=== PATIENT | male | born 1935 | race African-American/Black ===

== ENCOUNTER 2021-05-03 15:13 | Inpatient (IN) | payer MEDICARE, BC ==
[~2021-05-03] VITALS: Ht 188 cm; Wt 89.8 kg
[~2021-05-03 15:13] MED LIST: BRIN8DRO EACHEYE; TRAM50TA3 MT; TRAV2.5D9 EACHEYE
[2021-05-03] MEDS ORDERED: SODIUM CHLORIDE 0.9% 1,000 ML IV ONE (16:30)
[2021-05-03 17:24] LABS: HEMOGLOBIN. 9.3 g/dL (14.0-18.0); MEAN CORPUSCULAR HEMOGLOBIN 28.8 pg (28.0-32.0); MEAN CORPUSCULAR VOLUME 86.8 fL (80.0-94.0); MEAN PLATELET VOLUME 8.5 fl (7.4-10.4); PLATELET 149 x1000/uL (130-400); RED BLOOD CELL COUNT 3.23 mill/uL (4.7-6.1); RED CELL DISTRIBUTION WIDTH 14.9 % (11.6-14.6)
[2021-05-03 17:31] LABS: CHLORIDE 108 mEq/L (98-107)
[2021-05-03] MEDS ORDERED: ONDANSETRON HCL 4MG/2ML INJ IV PRN (18:45)
[2021-05-03] MEDS ORDERED: ACETAMINOPHEN 650MG/20.3ML UDC GT PRN (18:45)
[2021-05-03] MEDS ORDERED: DOCUSATE SODIUM 100MG CAPSULE PO PRN (18:45)
[2021-05-03] MEDS ORDERED: ENOXAPARIN 60MG/0.6ML SYR SUBCUT ONE (19:15)
[2021-05-03] MEDS ORDERED: ASPIRIN 81MG TABLET PO ONE (19:15)
[2021-05-03 19:47] LABS: PLATELET ESTIMATE NORMAL
[2021-05-03 22:00] VITALS: BP 146/81
[2021-05-03 23:00] VITALS: BP 146/81
[2021-05-04] VITALS (7 sets, daily range): BP systolic 92–131; BP diastolic 41–79
[2021-05-04 00:14] LABS: CREATINE KINASE MB FRACTION 3.4 ng/mL (0.5-3.6)
[2021-05-04] MEDS: HYDROCODONE/ACETAMINOPHEN 5/325MG TABLET PO PRN ×2 (08:21→12:27)
[2021-05-04 09:47] LABS: CLARITY URINE TURBID (CLEAR); COLOR URINE DARK YELLOW (YELLOW); KETONES URINE TRACE (NEGATIVE); LEUKOCYTE ESTERASE URINE NEGATIVE (NEGATIVE); NITRITE URINE NEGATIVE (NEGATIVE); OCCULT BLOOD URINE NEGATIVE (NEGATIVE); PROTEIN URINE TRACE (NEGATIVE); SPECIFIC GRAVITY URINE 1.027 (1.005-1.030); UROBILINOGEN URINE 0.2 E.U./dL (0.2-1.0)
[2021-05-04 10:05] LABS: BASOPHILS % 0.1 % (0.0-2.0); EOSINOPHILS % 0.2 % (0.0-5.0); HEMATOCRIT. 21.3 % (42.0-52.0); HEMOGLOBIN. 7.4 g/dL (14.0-18.0); LYMPHOCYTES % 11.7 % (20.0-50.0); MEAN CORPUSCULAR HEMOGLOBIN 30.5 pg (28.0-32.0); MEAN CORPUSCULAR VOLUME 87.4 fL (80.0-94.0); MEAN PLATELET VOLUME 8.9 fl (7.4-10.4); MONOCYTES % 5.7 % (2.0-8.0); NEUTROPHILS % 82.3 % (40.0-76.0); PLATELET 115 x1000/uL (130-400); RED BLOOD CELL COUNT 2.44 mill/uL (4.7-6.1); RED CELL DISTRIBUTION WIDTH 14.7 % (11.6-14.6)
[2021-05-04 10:22] LABS: CHLORIDE 112 mEq/L (98-107)
[2021-05-04 10:26] LABS: *AMPHETAMINES SCREEN URINE NEGATIVE (NEGATIVE); *BARBITURATES SCREEN URINE NEGATIVE (NEGATIVE); *BENZODIAZEPINES SCREEN URINE NEGATIVE (NEGATIVE); *COCAINE SCREEN URINE NEGATIVE (NEGATIVE); METHADONE URINE SCREEN NEGATIVE (NEGATIVE)
[2021-05-04 10:27] LABS: CANNABINOID URINE SCREEN NEGATIVE (NEGATIVE); OPIATES URINE SCREEN NEGATIVE (NEGATIVE); PHENCYCLIDINE URINE SCREEN NEGATIVE (NEGATIVE)
[2021-05-04 10:34] LABS: CREATINE KINASE MB FRACTION 3.8 ng/mL (0.5-3.6)
[2021-05-04 10:35] LABS: CREATINE KINASE 383 IU/L (39-308)
[2021-05-04] MEDS ORDERED: DEXTROSE 50% WATER 50ML SYRINGE IV PRN (16:45)
[2021-05-04] MEDS: BLOOD SUGAR DIAGNOSTIC STRIP TEST SCH ×2 (17:00→21:00)
[2021-05-04] MEDS: INSULIN LISPRO 100 UNITS/ML SUBCUT SCH ×2 (17:10→21:00)
[2021-05-05] VITALS (20 sets, daily range): BP systolic 100–203; BP diastolic 51–103
[2021-05-05] MEDS: BLOOD SUGAR DIAGNOSTIC STRIP TEST SCH ×4 (06:02→20:36)
[2021-05-05] MEDS: INSULIN LISPRO 100 UNITS/ML SUBCUT SCH ×4 (06:16→20:39)
[2021-05-05 11:40] LABS: HEMATOCRIT 23.1 % (42.0-52.0)
[2021-05-05 12:51] LABS: BASOPHILS % 0.2 % (0.0-2.0); EOSINOPHILS % 1.1 % (0.0-5.0); HEMOGLOBIN. 7.8 g/dL (14.0-18.0); LYMPHOCYTES % 13.2 % (20.0-50.0); MEAN CORPUSCULAR HEMOGLOBIN 29.7 pg (28.0-32.0); MEAN CORPUSCULAR VOLUME 87.7 fL (80.0-94.0); MEAN PLATELET VOLUME 9.3 fl (7.4-10.4); MONOCYTES % 13.4 % (2.0-8.0); NEUTROPHILS % 72.1 % (40.0-76.0); PLATELET 88 x1000/uL (130-400); RED BLOOD CELL COUNT 2.63 mill/uL (4.7-6.1); RED CELL DISTRIBUTION WIDTH 14.8 % (11.6-14.6)
[2021-05-05 13:01] LABS: CHLORIDE 113 mEq/L (98-107)
[2021-05-05 13:09] LABS: TOTAL IRON BINDING CAPACITY 383 ug/dL (250-450)
[2021-05-05 13:43] LABS: FOLIC ACID (FOLATE) SERUM >20 ng/mL ng/mL (>5.38)
[2021-05-05 13:54] LABS: VITAMIN B12 SERUM 597 pg/mL (211-911)
[2021-05-05 16:54] LABS: INR 1.1; PROTHROMBIN TIME 11.6 sec (9.6-11.0)
[2021-05-05] MEDS: PANTOPRAZOLE SODIUM 40 MG/VIAL IV SCH (17:24)
[2021-05-05] MEDS: HYDROCODONE/ACETAMINOPHEN 5/325MG TABLET PO PRN (18:23)
[2021-05-05] MEDS: AMLODIPINE 10MG TABLET PO SCH (18:46)
[2021-05-05] MEDS ORDERED: CLONIDINE 0.1MG TABLET PO PRN (21:15)
[2021-05-05 23:39] LABS: HEMATOCRIT 26.7 % (42.0-52.0); HEMOGLOBIN 9.1 g/dL (14.0-18.0)
[2021-05-06] VITALS (7 sets, daily range): BP systolic 118–172; BP diastolic 41–86
[2021-05-06 01:25] LABS: HEPATITIS B SURFACE ANTIGEN NEGATIVE
[2021-05-06] MEDS: INSULIN LISPRO 100 UNITS/ML SUBCUT SCH ×4 (06:31→21:00)
[2021-05-06] MEDS: BLOOD SUGAR DIAGNOSTIC STRIP TEST SCH ×4 (06:31→21:00)
[2021-05-06 07:42] LABS: BASOPHILS % 0.2 % (0.0-2.0); EOSINOPHILS % 0.6 % (0.0-5.0); HEMATOCRIT. 27.7 % (42.0-52.0); HEMOGLOBIN. 9.3 g/dL (14.0-18.0); LYMPHOCYTES % 7.3 % (20.0-50.0); MEAN CORPUSCULAR HEMOGLOBIN 29.4 pg (28.0-32.0); MEAN CORPUSCULAR VOLUME 87.2 fL (80.0-94.0); MONOCYTES % 11.5 % (2.0-8.0); NEUTROPHILS % 80.4 % (40.0-76.0); PLATELET 95 x1000/uL (130-400); RED BLOOD CELL COUNT 3.18 mill/uL (4.7-6.1); RED CELL DISTRIBUTION WIDTH 14.7 % (11.6-14.6)
[2021-05-06 07:48] LABS: INR 1.1; PROTHROMBIN TIME 11.4 sec (9.6-11.0)
[2021-05-06 08:10] LABS: CHLORIDE 111 mEq/L (98-107)
[2021-05-06] MEDS: AMLODIPINE 10MG TABLET PO SCH (08:54)
[2021-05-06] MEDS: PANTOPRAZOLE SODIUM 40 MG/VIAL IV SCH ×2 (08:54→17:13)
[2021-05-06] MEDS ORDERED: MIDAZOLAM HCL 5 MG/5 ML VIAL ONE (14:37)
[2021-05-06] MEDS ORDERED: FENTANYL CITRATE/PF 50MCG/ML 2ML VIAL ONE (14:37)
[2021-05-07] VITALS (7 sets, daily range): BP systolic 104–171; BP diastolic 63–85
[2021-05-07] MEDS: INSULIN LISPRO 100 UNITS/ML SUBCUT SCH ×4 (06:19→21:00)
[2021-05-07] MEDS: BLOOD SUGAR DIAGNOSTIC STRIP TEST SCH ×4 (06:19→21:00)
[2021-05-07] MEDS: PANTOPRAZOLE SODIUM 40 MG/VIAL IV SCH ×2 (09:07→19:42)
[2021-05-07] MEDS: AMLODIPINE 10MG TABLET PO SCH (09:07)
[2021-05-07] MEDS ORDERED: AMLO10TA80 PO (14:39)
[2021-05-07] MEDS ORDERED: PROT40 MT (14:39)
[2021-05-07 18:34] LABS: BASOPHILS % 0.3 % (0.0-2.0); EOSINOPHILS % 1.9 % (0.0-5.0); HEMATOCRIT. 27.2 % (42.0-52.0); HEMOGLOBIN. 9.2 g/dL (14.0-18.0); MEAN CORPUSCULAR HEMOGLOBIN 30.1 pg (28.0-32.0); MEAN CORPUSCULAR VOLUME 88.8 fL (80.0-94.0); MEAN PLATELET VOLUME 9.3 fl (7.4-10.4); NEUTROPHILS % 70.8 % (40.0-76.0); PLATELET 120 x1000/uL (130-400); RED BLOOD CELL COUNT 3.06 mill/uL (4.7-6.1); RED CELL DISTRIBUTION WIDTH 14.9 % (11.6-14.6)
[2021-05-07] MEDS ORDERED: NALOXONE HCL 0.4MG/ML VIAL IV PRN (22:15)
[2021-05-08] VITALS: BP 156/77
[2021-05-08 04:00] VITALS: BP 154/79
[2021-05-08] MEDS: BLOOD SUGAR DIAGNOSTIC STRIP TEST SCH ×4 (06:16→21:00)
[2021-05-08] MEDS: INSULIN LISPRO 100 UNITS/ML SUBCUT SCH ×4 (06:17→21:35)
[2021-05-08 07:24] LABS: CHLORIDE 111 mEq/L (98-107)
[2021-05-08 07:37] LABS: BASOPHILS % 0.3 % (0.0-2.0); EOSINOPHILS % 2.4 % (0.0-5.0); HEMATOCRIT. 25.1 % (42.0-52.0); HEMOGLOBIN. 8.6 g/dL (14.0-18.0); LYMPHOCYTES % 13.1 % (20.0-50.0); MEAN CORPUSCULAR HEMOGLOBIN 30.1 pg (28.0-32.0); MEAN CORPUSCULAR VOLUME 87.1 fL (80.0-94.0); MEAN PLATELET VOLUME 8.6 fl (7.4-10.4); MONOCYTES % 12.8 % (2.0-8.0); NEUTROPHILS % 71.4 % (40.0-76.0); PLATELET 109 x1000/uL (130-400); RED BLOOD CELL COUNT 2.88 mill/uL (4.7-6.1); RED CELL DISTRIBUTION WIDTH 14.7 % (11.6-14.6)
[2021-05-08] MEDS: PANTOPRAZOLE SODIUM 40 MG/VIAL IV SCH ×2 (09:35→16:53)
[2021-05-08] MEDS: AMLODIPINE 10MG TABLET PO SCH (09:36)
[2021-05-08] MEDS ORDERED: CLAR-44 PO (19:15)
[2021-05-08] MEDS ORDERED: METR-167 PO (19:15)
[2021-05-08] MEDS ORDERED: PANT40SU MT (19:16)
[2021-05-08 20:00] VITALS: BP 144/76
[2021-05-08] MEDS: CLARITHROMYCIN 500MG TABLET PO SCH (21:35)
[2021-05-08] MEDS: METRONIDAZOLE 500MG TABLET PO SCH (21:35)
[2021-05-09] VITALS: BP 141/75
[2021-05-09 04:00] VITALS: BP 135/82
[2021-05-09] MEDS: BLOOD SUGAR DIAGNOSTIC STRIP TEST SCH ×4 (06:40→21:10)
[2021-05-09] MEDS: METRONIDAZOLE 500MG TABLET PO SCH ×3 (06:56→20:38)
[2021-05-09] MEDS: INSULIN LISPRO 100 UNITS/ML SUBCUT SCH ×4 (06:56→21:00)
[2021-05-09 07:35] LABS: BASOPHILS % 0.5 % (0.0-2.0); EOSINOPHILS % 2.3 % (0.0-5.0); HEMATOCRIT. 24.7 % (42.0-52.0); HEMOGLOBIN. 8.4 g/dL (14.0-18.0); LYMPHOCYTES % 9.9 % (20.0-50.0); MEAN CORPUSCULAR HEMOGLOBIN 29.6 pg (28.0-32.0); MEAN CORPUSCULAR VOLUME 87.3 fL (80.0-94.0); MEAN PLATELET VOLUME 8.8 fl (7.4-10.4); NEUTROPHILS % 74.3 % (40.0-76.0); PLATELET 123 x1000/uL (130-400); RED BLOOD CELL COUNT 2.83 mill/uL (4.7-6.1); RED CELL DISTRIBUTION WIDTH 14.8 % (11.6-14.6)
[2021-05-09 08:00] VITALS: BP 118/62
[2021-05-09] MEDS: PANTOPRAZOLE SODIUM 40 MG/VIAL IV SCH ×2 (09:23→17:44)
[2021-05-09] MEDS: CLARITHROMYCIN 500MG TABLET PO SCH ×2 (09:23→20:38)
[2021-05-09] MEDS: AMLODIPINE 10MG TABLET PO SCH (09:23)
[2021-05-09 09:58] LABS: CHLORIDE 110 mEq/L (98-107)
[2021-05-09 12:00] VITALS: BP 119/72
[2021-05-09 16:00] VITALS: BP 127/76
[2021-05-09 20:00] VITALS: BP 149/84
[2021-05-10] VITALS: BP 129/77
[2021-05-10 04:00] VITALS: BP 133/78
[2021-05-10] MEDS: METRONIDAZOLE 500MG TABLET PO SCH ×2 (06:15→13:00)
[2021-05-10] MEDS: BLOOD SUGAR DIAGNOSTIC STRIP TEST SCH ×3 (06:27→16:55)
[2021-05-10] MEDS: INSULIN LISPRO 100 UNITS/ML SUBCUT SCH ×3 (07:15→16:55)
[2021-05-10 08:00] VITALS: BP 145/65
[2021-05-10] MEDS: CLARITHROMYCIN 500MG TABLET PO SCH (09:04)
[2021-05-10] MEDS: PANTOPRAZOLE SODIUM 40 MG/VIAL IV SCH ×2 (09:04→16:55)
[2021-05-10] MEDS: AMLODIPINE 10MG TABLET PO SCH (09:05)
[2021-05-10 10:27] LABS: EOSINOPHILS % 2.3 % (0.0-5.0); HEMATOCRIT. 27.5 % (42.0-52.0); HEMOGLOBIN. 9.3 g/dL (14.0-18.0); LYMPHOCYTES % 11.9 % (20.0-50.0); MEAN CORPUSCULAR HEMOGLOBIN 29.7 pg (28.0-32.0); MEAN CORPUSCULAR VOLUME 87.5 fL (80.0-94.0); MEAN PLATELET VOLUME 8.5 fl (7.4-10.4); MONOCYTES % 10.3 % (2.0-8.0); NEUTROPHILS % 74.5 % (40.0-76.0); PLATELET 159 x1000/uL (130-400); RED BLOOD CELL COUNT 3.14 mill/uL (4.7-6.1); RED CELL DISTRIBUTION WIDTH 14.7 % (11.6-14.6)
[2021-05-10 10:38] LABS: CHLORIDE 109 mEq/L (98-107)
[2021-05-10 12:00] VITALS: BP 117/67
[2021-05-10 13:27] VITALS: BP 114/56
[2021-05-10 16:00] VITALS: BP 138/75
== END 2021-05-10 20:35 | disposition home health service (06) | DRG 280 ==
LOC: ER 15:13 → 7EST 19:11 → EDBEDREQ 19:25 → EDBEDREQTM 19:25 → ENRESERV 20:41 → 5WST 05-09 16:05
PROVIDERS: ADMIT Family Medicine; ATTEND Family Medicine
PROC: 30233N1 Transfusion of Nonautologous Red Blood Cells into Peripheral Vein, Percutaneous Approach (ICD-10-PCS; principal; 2021-05-05)
PROC: 0DB78ZX Excision of Stomach, Pylorus, Via Natural or Artificial Opening Endoscopic, Diagnostic (ICD-10-PCS; 2021-05-06)
DX: I21.4 Non-ST elevation (NSTEMI) myocardial infarction (principal); K29.71 Gastritis, unspecified, with bleeding; N17.9 Acute kidney failure, unspecified; D62 Acute posthemorrhagic anemia; I85.00 Esophageal varices without bleeding; I47.1 Supraventricular tachycardia; R00.1 Bradycardia, unspecified; D18.1 Lymphangioma, any site; E78.5 Hyperlipidemia, unspecified; F03.90 Unspecified dementia, unspecified severity, without behavioral disturbance, psychotic disturbance, mood disturbance, and anxiety; I51.7 Cardiomegaly; I71.9 Aortic aneurysm of unspecified site, without rupture; Z20.822 Contact with and (suspected) exposure to COVID-19; K27.9 Peptic ulcer, site unspecified, unspecified as acute or chronic, without hemorrhage or perforation; K76.89 Other specified diseases of liver; N20.0 Calculus of kidney; N28.1 Cyst of kidney, acquired; R73.9 Hyperglycemia, unspecified; K31.89 Other diseases of stomach and duodenum; C61 Malignant neoplasm of prostate; R16.0 Hepatomegaly, not elsewhere classified; Z85.46 Personal history of malignant neoplasm of prostate; Z87.891 Personal history of nicotine dependence; Z91.81 History of falling; Z95.0 Presence of cardiac pacemaker; Z79.899 Other long term (current) drug therapy
CPT/HCPCS: 36415; 71045; 74176; 76700; 80048; 80053; 80076; 80305; 81003; 82248; 82270; 82550; 82553; 82607; 82746; 82962; 83036; 83540; 83550; 83880; 84484; 85014; 85018; 85025; 85044; 86705; 86709; 86803; 86850; 86900; 86920; 87340; 87426; 88305; 88312; 88313; 93005; 93306; 97162; 99291; C9113; J1650; J1815; J2250; J3010; J7030; J7040; P9016; P9021